=== PATIENT | female | born 1990 | race Caucasian/White ===

== ENCOUNTER 2022-08-13 13:43 | Outpatient (CLI) | payer OTHER, SELFPAY ==
--- NOTE | 2022-08-13 14:00 | CRLHL7_ITS ---
For Patients: As a result of the Cures Act, medical imaging exams and procedure reports are released immediately into your electronic medical record. You may view this report before your referring provider. If you have questions, please contact your health care provider. Indication: Left wrist pain Technique: Two views left Comparison: No comparison Findings: Normal alignment. No acute fractures are seen. Dictated by Marisol Zuniga MD @ 08/13/2022 3:22:32 PM (Electronically Signed)
== END 2022-08-13 13:44 | disposition home or self-care (01) ==
PROVIDERS: Visit Provider Physician Assistant Medical
DX: M25.532 Pain in left wrist (principal)
CPT/HCPCS: 73100